=== PATIENT | male | born 1965 | race African-American/Black ===

== ENCOUNTER 2017-11-01 07:19 | Inpatient (IN) | payer OTHER ==
[~2017-11-01] VITALS: Ht 177.8 cm; Wt 73.9 kg
[2017-11-01 08:11] LABS: INTER. NORMALIZED RATIO 1.2
[2017-11-01 08:14] LABS: PTT 30.2 SEC (25-37)
[2017-11-01 08:17] LABS: HEMATOCRIT 51.5 % (38.0-50.0); HEMOGLOBIN 18.1 G/DL (12.5-16.6); MCH 37.1 PG (29.0-34.0); MCHC 35.1 G/DL (30.0-36.0); MCV 105.5 FL (86-99); NRBC (%) 0.3 /100 WBC (0-0); PLATELET COUNT 359 K/uL (156-360); RBC DIS.WIDTH-CV 14.1 % (11.8-14.6); RBC DIS.WIDTH-SD 55.8 % (39-53); RED BLOOD COUNT 4.88 M/uL (4.00-5.50); WHITE BLOOD COUNT 7.1 K/uL (4.1-10.2)
[2017-11-01 08:21] LABS: COMMENTS - BLOOD GASES A++C; SITE LR; pH 7.39 (7.35-7.45)
[2017-11-01 08:22] LABS: BASE EXCESS 14.1 mEq/L (-3 to +3); BICARBONATE 43.6 mEq/L (22-26); DEVICE NRB; FI02 100 %; METHEMOGLOBIN 1.4 % (0-1.5); O2 FLOW 15 L/MIN; PCO2 72 mm Hg (35-45); PO2 320 mm Hg (80-100); TOTAL RESP RATE 32 resp/min
[2017-11-01 08:47] LABS: ALBUMIN 3.7 G/DL (3.2-4.8); ALKALINE PHOSPHATASE 54 IU/L (3-129); ALT (GPT) 23 IU/L (3-49); AST (GOT) 27 IU/L (2-34); CHLORIDE 84 MEQ/L (99-109); CREATININE 0.9 MG/DL (0.6-1.3); GFR ESTIMATE (CALCULATED) > 59 mL/min/ (58.99-99999); GLUCOSE 131 mg/dL (70-99); LIPASE 7 U/L (1.0-51.0); POTASSIUM 3.4 MEQ/L (3.7-5.4); SODIUM 134 MEQ/L (136-147); TOTAL BILIRUBIN 2.1 MG/DL (0.0-1.0); UREA NITROGEN (BUN) 21 mg/dL (9-23)
[2017-11-01 08:54] LABS: TROP-I INTERPRETATION NEGATIVE; TROPONIN-I 0.13 ng/mL (0.0-0.30)
[2017-11-01 09:06] LABS: ABS NEUTROPHIL COUNT 3.7; ANISOCYTOSIS 2+; ATYPICAL LYMPHOCYTE 3.6 %; BAND NEUTROPHILS 4.6 % (0-8.0); EOSINOPHIL ABS CT 0; LYMPHOCYTES 13.6 % (15.0-45.0); MACROCYTES 1+; MONOCYTES 28.2 % (0-9.0); MYELOCYTES 1.8 %; NUCLEATED RBC'S 2.7; PLAT.SUFFICIENCY ADEQUATE; SEG.NEUTROPHILS 48.2 % (46.0-76.0)
[2017-11-01 11:14] LABS: APPEARANCE CLEAR ((CLEAR)); BILIRUBIN NEGATIVE; BLOOD MODERATE; COLOR AMBER ((YELLOW)); GLUCOSE (STRIP) NEGATIVE; KETONES NEGATIVE; LEUKOCYTES NEGATIVE; NITRITE NEGATIVE; PROTEIN (STRIP) 100; SPECIFIC GRAVITY 1.016 (1.000-1.030)
[2017-11-01 11:18] LABS: BACTERIA RARE /HPF; CALCIUM OXALATE CRYSTALS 2+ /HPF; EPITHELIAL CELLS RARE /HPF; HYALINE CASTS 15-20 /LPF; MUCUS TRACE /LPF; UCUL ADDED? NO; WHITE BLOOD CELLS 0-5 /HPF (0-5)
[2017-11-01 15:57] LABS: BENZODIAZEPINES, URINE SCREEN Negative (200 ng/mL)
[2017-11-01 16:24] VITALS: BP 144/107
[2017-11-01 16:25] LABS: SERUM ETHYL ALCOHOL < 10 mg/dL
[2017-11-01 19:57] VITALS: BP 124/72
[2017-11-01 21:49] LABS: TROP-I INTERPRETATION NEGATIVE; TROPONIN-I 0.08 ng/mL (0.0-0.30)
[2017-11-01 23:02] VITALS: BP 127/75
[2017-11-02 01:01] LABS: TROP-I INTERPRETATION NEGATIVE; TROPONIN-I 0.06 ng/mL (0.0-0.30)
[2017-11-02 06:36] LABS: BASOPHIL (%) 1.4 % (0-1); BASOPHIL COUNT 0.1 K/uL (0-0.1); EOSINOPHIL (%) 0 % (0-5); IMMATURE GRANULOCYTE (%) 2.3 % (0.0-0.7); LYMPHOCYTE (%) 13.9 % (15-42); LYMPHOCYTE COUNT 0.9 K/uL (1.0-2.8); MCHC 33.3 G/DL (30.0-36.0); MCV 108.1 FL (86-99); MONOCYTE (%) 12.6 % (3-12); MONOCYTE COUNT 0.8 K/uL (0-0.8); NEUTROPHIL (%) 69.8 % (45-76); NEUTROPHIL COUNT 4.6 K/uL (1.8-6.4); PLATELET COUNT 327 K/uL (156-360); RBC DIS.WIDTH-CV 14.2 % (11.8-14.6); RBC DIS.WIDTH-SD 57.6 % (39-53); RED BLOOD COUNT 4.44 M/uL (4.00-5.50); WHITE BLOOD COUNT 6.6 K/uL (4.1-10.2)
[2017-11-02 06:44] LABS: ALBUMIN 3.3 G/DL (3.2-4.8); ALKALINE PHOSPHATASE 45 IU/L (3-129); ALT (GPT) 19 IU/L (3-49); AST (GOT) 19 IU/L (2-34); CREATININE 0.7 MG/DL (0.6-1.3); DIRECT BILIRUBIN 0.5 mg/dL (0.0-0.3); GFR ESTIMATE (CALCULATED) > 59 mL/min/ (58.99-99999); GLUCOSE 103 mg/dL (70-99); MAGNESIUM 2.1 mg/dl (1.3-2.7); SODIUM 140 MEQ/L (136-147); TOTAL PROTEIN 6.8 G/DL (6.4-8.3); UREA NITROGEN (BUN) 13 mg/dL (9-23)
[2017-11-02 06:48] LABS: CHLORIDE 93 MEQ/L (99-109); TOTAL BILIRUBIN 1.1 MG/DL (0.0-1.0)
[2017-11-02 06:59] LABS: ABS NEUTROPHIL COUNT 5.3; ANISOCYTOSIS 2+; ATYPICAL LYMPHOCYTE 4.3 %; BAND NEUTROPHILS 3.5 % (0-8.0); BURR CELLS 1+; EOSINOPHIL ABS CT 0; LYMPHOCYTES 7.8 % (15.0-45.0); MACROCYTES 2+; METAMYELOCYTES 0.9 %; NUCLEATED RBC'S 0.9; OVALOCYTES 1+; PLAT.SUFFICIENCY ADEQUATE; TEAR DROP CELLS 1+
[2017-11-02 07:03] LABS: SEG.NEUTROPHILS 76.5 % (46.0-76.0)
[2017-11-02 09:53] LABS: HEMOGLOBIN A1c (GLYCOHEMOGLOB) 4.9 % (Below 5.7)
[2017-11-02 10:02] VITALS: BP 107/67
[2017-11-02 11:00] VITALS: BP 148/99
[2017-11-02 15:30] VITALS: BP 139/97
[2017-11-02 19:32] VITALS: BP 140/86
[2017-11-02 22:55] VITALS: BP 118/77
[2017-11-03] VITALS (7 sets, daily range): BP systolic 138–166; BP diastolic 83–110
[2017-11-04] VITALS (7 sets, daily range): BP systolic 141–197; BP diastolic 85–120
[2017-11-04 08:27] LABS: HEMATOCRIT 48.6 % (38.0-50.0); HEMOGLOBIN 16.5 G/DL (12.5-16.6); MCH 36.4 PG (29.0-34.0); MCV 107.3 FL (86-99); PLATELET COUNT 378 K/uL (156-360); RBC DIS.WIDTH-CV 14.4 % (11.8-14.6); RBC DIS.WIDTH-SD 57.4 % (39-53); RED BLOOD COUNT 4.53 M/uL (4.00-5.50); WHITE BLOOD COUNT 10.8 K/uL (4.1-10.2)
[2017-11-04 08:32] LABS: CHLORIDE 91 MEQ/L (99-109); CREATININE 0.7 MG/DL (0.6-1.3); GFR ESTIMATE (CALCULATED) > 59 mL/min/ (58.99-99999); GLUCOSE 104 mg/dL (70-99); POTASSIUM 3.6 MEQ/L (3.7-5.4); SODIUM 143 MEQ/L (136-147); UREA NITROGEN (BUN) 9 mg/dL (9-23)
[2017-11-04 08:58] LABS: CARBON DIOXIDE (BICARBONATE) > 40.0 MEQ/L (20-31)
[2017-11-04 10:11] LABS: BASE EXCESS 19.1 mEq/L (-3 to +3); BICARBONATE 46.8 mEq/L (22-26); CARBOXY HGB 1.7 % (0-5); COMMENTS - BLOOD GASES A+C+; DEVICE NC; METHEMOGLOBIN 1.2 % (0-1.5); O2 FLOW 2 L/MIN; PCO2 60 mm Hg (35-45); PO2 83 mm Hg (80-100); SITE LR; TOTAL RESP RATE 20 resp/min
[2017-11-05] VITALS (7 sets, daily range): BP systolic 119–171; BP diastolic 64–104
[2017-11-06 06:15] LABS: HEMATOCRIT 45.2 % (38.0-50.0); HEMOGLOBIN 15.5 G/DL (12.5-16.6); MCHC 34.3 G/DL (30.0-36.0); MCV 104.9 FL (86-99); PLATELET COUNT 348 K/uL (156-360); RBC DIS.WIDTH-CV 14.4 % (11.8-14.6); RBC DIS.WIDTH-SD 56.6 % (39-53); RED BLOOD COUNT 4.31 M/uL (4.00-5.50); WHITE BLOOD COUNT 8.4 K/uL (4.1-10.2)
[2017-11-06 06:41] LABS: CHLORIDE 92 MEQ/L (99-109); CREATININE 0.6 MG/DL (0.6-1.3); GFR ESTIMATE (CALCULATED) > 59 mL/min/ (58.99-99999); GLUCOSE 118 mg/dL (70-99); POTASSIUM 2.9 MEQ/L (3.7-5.4); SODIUM 141 MEQ/L (136-147); UREA NITROGEN (BUN) 9 mg/dL (9-23)
[2017-11-06 06:43] LABS: CARBON DIOXIDE (BICARBONATE) > 40.0 MEQ/L (20-31); MAGNESIUM 1.7 mg/dl (1.3-2.7)
[2017-11-06 07:27] VITALS: BP 164/100
[2017-11-06] MEDS ORDERED: CEFTIN500 MG PO (13:23)
[2017-11-06] MEDS ORDERED: MUCINEX600 MG PO (13:25)
[2017-11-06] MEDS ORDERED: DULERA 200 MCG/13 GM IH (13:25)
[2017-11-06] MEDS ORDERED: Thiamine,Vitamin B1 PO (13:25)
[2017-11-06] MEDS ORDERED: THERAGRAN1 TABLET PO (13:25)
[2017-11-06] MEDS ORDERED: DUONEB 2.5-0.5 M3 ML AEROSOL (13:25)
[2017-11-06] MEDS ORDERED: NICOTINE PATCH1 EAC2 TD (13:25)
[2017-11-06] MEDS ORDERED: FOLIC ACID1 MG PO (13:25)
[2017-11-06] MEDS ORDERED: PREDNISONE20 MG PO (13:26)
[2017-11-06] MEDS ORDERED: PREDNISONE10 MG PO ×2 (13:26)
[2017-11-06 13:55] LABS: CARBON DIOXIDE (BICARBONATE) > 40.0 MEQ/L (20-31); CHLORIDE 91 MEQ/L (99-109); CREATININE 0.7 MG/DL (0.6-1.3); GFR ESTIMATE (CALCULATED) > 59 mL/min/ (58.99-99999); GLUCOSE 162 mg/dL (70-99); MAGNESIUM 1.8 mg/dl (1.3-2.7); POTASSIUM 3.2 MEQ/L (3.7-5.4); SODIUM 140 MEQ/L (136-147); UREA NITROGEN (BUN) 10 mg/dL (9-23)
== END 2017-11-06 15:24 | disposition home or self-care (01) | DRG 871 ==
LOC: EME 07:19 → EDOF 11:58 → 5EAST 11:58 → ENRESERV 12:10 → 5EAST 15:35
PROVIDERS: Internal Medicine; Nurse Practitioner Family; Physician Assistant
DX: A41.9 Sepsis, unspecified organism (principal); J18.9 Pneumonia, unspecified organism; J96.01 Acute respiratory failure with hypoxia; J44.0 Chronic obstructive pulmonary disease with (acute) lower respiratory infection; J44.1 Chronic obstructive pulmonary disease with (acute) exacerbation; J96.02 Acute respiratory failure with hypercapnia; E87.6 Hypokalemia; I10 Essential (primary) hypertension; E87.2 Acidosis; F10.20 Alcohol dependence, uncomplicated; F41.9 Anxiety disorder, unspecified; J20.9 Acute bronchitis, unspecified; F17.200 Nicotine dependence, unspecified, uncomplicated; Z83.3 Family history of diabetes mellitus; Z82.49 Family history of ischemic heart disease and other diseases of the circulatory system
CPT/HCPCS: 36600; 71046; 71250; 80048; 80048 91; 80053; 80076; 80306 90; 81003; 82803; 83036; 83605; 83690; 83735; 84484; 85025; 85027; 85610; 85730; 87040; 87070; 87205; 87449; 93005; 93306; 94640; 94760; 94799; 99281; 99285; G0480; J0360; J0456; J0696; J1650; J2920; J2930; J3411; J7030